=== PATIENT | male | born 1980 | race Caucasian/White ===

== ENCOUNTER 2020-11-16 12:06 | Emergency (ER) | payer MEDICAID, OTHER ==
[~2020-11-16] VITALS: Ht 182.9 cm; Wt 86.4 kg
[2020-11-16] MEDS ORDERED: ibuprofen tablet 400 MG TABLET PO ONE (13:25)
== END 2020-11-16 13:51 | disposition home or self-care (01) ==
LOC: ER 12:07
DX: R05 Cough (principal); R06.02 Shortness of breath; R51.9 Headache, unspecified; R09.89 Other specified symptoms and signs involving the circulatory and respiratory systems; Z20.828 Contact with and (suspected) exposure to other viral communicable diseases; F12.90 Cannabis use, unspecified, uncomplicated; Z72.89 Other problems related to lifestyle
CPT/HCPCS: 36415; 87635; 99283